=== PATIENT | male | born 1950 | race Caucasian/White ===

== ENCOUNTER 2020-04-18 07:12 | Day surgery (SDC) | payer MEDICARE, SELFPAY ==
--- NOTE | 2020-04-15 12:24 | HO.ANESPROP2 ---
Documented by User: Kinaher Torresney 04/15/20 12:26 HPI - Anesthesia Eval Consult details Narrative: 69yo M for Colonoscopy PMFSH Past Medical History Medical History Bursitis of left elbow Cancer, colon History of colon cancer Hyperkalemia Hyperlipemia Lesion of spleen Surgical History Surgical History History of eye surgery Hx of colonoscopy Hx of tonsillectomy S/P colon resection Social History Social History Smoking Status: Never smoker Second Hand Smoke Exposure: No Use of substances other than those prescribed or required for medical reasons: Yes Substance Use Frequency: Weekly Advance Directives: No (unknown) Advance Directives Information Provided: No (unknown) Advance Directives on File: No (unknown) Meds Allergies Allergy/AdvReac Type Severity Reaction Status Date / Time Sulfa (Sulfonamide Allergy Unknown UNKNOWN Verified 04/18/20 07:32 Antibiotics) [SULFA (SULFONAMIDE ANTIBIOTICS)] Home Medications Medication Instructions Recorded Confirmed Type bisacodyl 2 tab PO BID 04/11/20 04/11/20 History peg 3350-electrolytes ml PO DIRECTED 04/11/20 04/11/20 History Exam Exam Date and Time: April 15, 2020 1224 Assessment and Plan Assessment Anesthesia Assessment: Chart Reviewed Documented by User: Calixto Aldana MD 04/18/20 07:46 PMFSH Past Medical History Medical History Bursitis of left elbow Cancer, colon History of colon cancer Hyperkalemia Hyperlipemia Lesion of spleen Surgical History Surgical History History of eye surgery Hx of colonoscopy Hx of tonsillectomy S/P colon resection Social History Social History Smoking Status: Never smoker Second Hand Smoke Exposure: No Use of substances other than those prescribed or required for medical reasons: Yes Substance Use Frequency: Weekly Advance Directives: No (unknown) Advance Directives Information Provided: No (unknown) Advance Directives on File: No (unknown) Meds Allergies Allergy/AdvReac Type Severity Reaction Status Date / Time Sulfa (Sulfonamide Allergy Unknown UNKNOWN Verified 04/18/20 07:32 Antibiotics) [SULFA (SULFONAMIDE ANTIBIOTICS)] Home Medications Medication Instructions Recorded Confirmed Type bisacodyl 2 tab PO BID 04/11/20 04/11/20 History peg 3350-electrolytes ml PO DIRECTED 04/11/20 04/11/20 History Exam Airway Mallampati Class: I TM Dist: >3cm Neck ROM: Full Loose/Missing/Broken Teeth: No Heart: RRR Lungs: NL Other: AO3 Assessment and Plan Assessment Anesthesia Assessment: Anesthesia Plan Discussed Final Anesthetic Review NPO: Yes ASA Class: II Final Preanesthetic Review: No Changes in Pt Med Stat, Meds & Allergies Reviewed, Consent Obtained/Reviewed, Med/Surg/Anes Hx Reviewed and Anes Risks/Benef Reviewed Patient Risk: Low Procedure Risk: Low Anesthetic Plan Anesthetic Plan: MAC: Disposition: Standard PACU
--- NOTE | 2020-04-18 07:48 | MHC.SHP ---
Surgical H&P Section A The patient is an INPATIENT: No The History & Physical has been completed within 30 days and I have reviewed it.: No Section B Chief Complaint: HX OF COLON CA Details of Present Illness: Here for colon cancer screening Relevant Family History (Specify if Yes): Yes Relevant Social History: Alcohol Use (occasional) Present Medications: see Short Stay Collaborative assessment Medical History: Significant History (High cholesterol, Olecranon bursitis left elbow, Hx of colon cancer) History of Previous Operations: Relevant previous surgery/procedure and date(s) (2004 colon resection, 2014 last colonoscopy) Allergies: Allergies Allergy/AdvReac Type Severity Reaction Status Date / Time Sulfa (Sulfonamide Allergy Unknown UNKNOWN Verified 04/18/20 07:32 Antibiotics) [SULFA (SULFONAMIDE ANTIBIOTICS)] Review of Systems Sugical H&P ROS: Negative: Cardiovascular, Respiratory, Psychiatric, Gastrointestinal, Genitourinary and Musculoskeletal Exam Surgical H&P Exam: Normal: HEENT, Normal: Heart, Normal: Lungs, Normal: Extremities and Normal: Neurological Plan Diagnosis/Plan: Unchanged Patient has been examined and remains a candidate for the planned procedure
[2020-04-18 07:50] VITALS: BP 145/91; PULSE 76; RESP 16; TEMP 36.9; O2SAT 97
[2020-04-18] MEDS: Lactated Ringers 1,000 ML 100 ML IVCONT (07:53)
--- NOTE | 2020-04-18 07:59 | P.BOP_ITS ---
Brief Operative Note Date of procedure: 04/26/20 Pre-op diagnosis: Colon cancer screening, Personal and FH of colon cancer (Mom at age 67 yrs) Post-op diagnosis: other ( colon polyp, diverticulosis.) Procedure: COLONOSCOPY PROCEDURE NOTE Colonoscopy till cecum with biopsies Consent: Indications of the procedure and potential complications including bleeding, perforation, reaction to medications and missed diagnosis were re viewed with the patient and informed consent was obtained. Instrument: Olympus PCF H 190 L variable stiffness pediatric colonoscope Colon withdrawl time was 22 minutes. Procedure: The patient was placed in the left lateral decubitis position and pre-procedure medications were administered. After a digital rectal examination of the ano-rectum, the video colonoscope was inserted into the rectum and advanced through the colon to the cecum. The colonoscope was slowly withdrawn in a retrograde panoramic fashion and the colon mucosa was carefully examined including a retroflexed view of the rectum. Findings and interventions are described below. Procedure Difficulty: Colon was long and tortuous and there was some spasm Findings: Terminal Ileum: Distal 5 cms was examined and appeared normal. Cecum: Normal. Ascending Colon: Normal Transverse Colon: Normal end to side anastomosis at 60 cms. A 3 mm diminutive appearing polyp in the TC removed with a cold biopsy. Descending Colon: Moderate diverticulosis. Sigmoid Colon: Severe diverticulosis with luminal narrowing. Rectum: Normal Anorectum: Lax anal sphincter with erika-anal skin tags. Colon preparation: Good after some irrigation. Impression and Post Procedure Diagnosis: Colonoscopy Findings: One diminutive polyp removed. Moderate to severe diverticulosis seen in the left colon Normal end to side anastomosis in the transverse colon. Plan: Await pathology results Patient has a FU appointment on 05/09/20 in [facility] with Soledad Olvera NP. Repeat Colonoscopy interval based on path results - in 5 years due to personal history of colon cancer. Above findings were reviewed with the patient and handout on colon polyps and diverticulosis was provided. Anesthesia: MAC (Dr Aldana) Surgeon: Dawson Seay Pathology: other (A. TC polyp x 1) Condition: stable Disposition: PACU
[2020-04-18 08:01] VITALS: BMI 19.3
[2020-04-18 08:43] VITALS: BP 107/64; PULSE 50; RESP 16; TEMP 36.3; O2SAT 96
[2020-04-18 08:57] VITALS: BP 121/73; PULSE 51; RESP 18; O2SAT 98
[2020-04-18 09:08] VITALS: BP 126/72; PULSE 65; RESP 18; TEMP 36.8; O2SAT 99
--- NOTE | 2020-04-18 09:40 | HO.POSTANES ---
Post Anesthesia Evaluation Post Anesthesia Evaluation Vital Signs: Vital Signs Temp Pulse Resp BP Pulse Ox 04/18/20 09:08 98.3 F 65 18 126/72 99 04/18/20 08:57 51 18 121/73 98 04/18/20 08:43 97.3 F 50 16 107/64 96 04/18/20 07:50 98.4 F 76 16 145/91 H 97 Anesthesia: Monitored Mental Status: Awake Pain Control: Satisfactory Nausea/Vomiting: None Hydration: Adequate Anesthesia-Related Issues: No Anes. Related Issues
== END 2020-04-18 10:28 | disposition home or self-care (01) ==
PROVIDERS: Internal Medicine Gastroenterology; PCP Family Medicine; Visit Provider Internal Medicine
PROC: 0DJD8ZZ Inspection of Lower Intestinal Tract, Via Natural or Artificial Opening Endoscopic (ICD-10-PCS; CPT 45378; principal; 2020-04-18 09:00)
DX: Z12.11 Encounter for screening for malignant neoplasm of colon (principal); Z85.038 Personal history of other malignant neoplasm of large intestine; Z80.0 Family history of malignant neoplasm of digestive organs; D12.3 Benign neoplasm of transverse colon; K57.30 Diverticulosis of large intestine without perforation or abscess without bleeding; K64.4 Residual hemorrhoidal skin tags; E78.00 Pure hypercholesterolemia, unspecified; E87.5 Hyperkalemia; Z98.0 Intestinal bypass and anastomosis status; Z88.2 Allergy status to sulfonamides
CPT/HCPCS: 45380; 88305; J3010